=== PATIENT | male | born 1985 | race Caucasian/White ===

== ENCOUNTER 2020-06-10 14:57 | Emergency (ER) | payer MEDICAID, OTHER ==
[~2020-06-10] VITALS: Ht 177.8 cm; Wt 60.3 kg
--- NOTE | 2020-06-10 15:06 | NUR ---
PT BIBRA FROM HOME C/O FACIAL PAIN AND DIFFICULTY SWALLOWING X TODAY. PT HAS HX OF MS AND TRIGEMINAL NEURALGA. 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 FACIAL PAIN 12/12. AWAITING MD RIVERA.
--- NOTE | 2020-06-10 15:30 | NUR ---
DR ESQUIVEL AT BEDSIDE FOR EVAL.
--- NOTE | 2020-06-10 15:51 | NUR ---
Patient does not wish to proceed with medical care recommended by Dr. Craft. Patient given information related to possible complications, up to and including , which could occur as a result of leaving the hospital at this time. Patient verbalizes understanding of risks involved due to leaving against medical advice. Patient has signed AMA form.
[2020-06-10 15:53] VITALS: BP 134/87
== END 2020-06-10 15:53 | disposition left against medical advice (07) ==
LOC: ER 15:16
DX: M54.5 Low back pain (principal); G89.29 Other chronic pain; R10.31 Right lower quadrant pain; G35 Multiple sclerosis; Z88.8 Allergy status to other drugs, medicaments and biological substances

== ENCOUNTER 2024-07-23 06:32 | Emergency (ER) | payer MEDICAID ==
[~2024-07-23] VITALS: Ht 172.7 cm; Wt 81.6 kg
[~2024-07-23 06:32] MED LIST: ALPR2TAB7 PO; BACL20TA PO; CELE-85 PO; CHOL100043 PO; DICY10CA37 PO; GEMTESA PO; HYDR-500 PO; MAGN500C16 PO; OCRE300V IV; ONDA4TAB11 SL; PREG150C93 PO; PROM118S5 PO; TIZA-180 PO; VILA10TA PO; ZONI100C31 PO; ZONI50CA15 PO
[2024-07-23 06:34] VITALS: TEMP 98.3
[2024-07-23] MEDS ORDERED: LIDOCAINE 5% (PATCH) 1 EA PATCH TP ONE (07:05)
[2024-07-23] MEDS ORDERED: KETOROLAC TROMETHAMINE 15 MG/ML VIAL ONE (07:06)
[2024-07-23] MEDS: LIDOCAINE 5% (PATCH) 1 EA PATCH TP STA (07:08)
[2024-07-23] MEDS: KETOROLAC TROMETHAMINE 15 MG/ML VIAL IV ONE (07:10)
[2024-07-23] MEDS ORDERED: LIDO30AD10 TP (07:39)
[2024-07-23] MEDS ORDERED: diphenhydrAMINE HCL 50 MG/ML VIAL ONE (08:26)
[2024-07-23] MEDS ORDERED: Magnesium 1GM/D5W 100ML PREMIX 100 ML IV ONE (08:26)
[2024-07-23] MEDS ORDERED: METOCLOPRAMIDE HCL 10 MG/2 ML VIAL ONE (08:26)
[2024-07-23] MEDS ORDERED: HYDROMORPHONE 1 MG/1 ML DISP.SYRIN ONE (08:28)
[2024-07-23] MEDS: HYDROMORPHONE 1 MG/1 ML DISP.SYRIN IV ONE (08:31)
[2024-07-23] MEDS: Magnesium 1 GM/2 ML VIAL IV ONE (08:35)
[2024-07-23] MEDS: diphenhydrAMINE HCL 50 MG/ML VIAL IV ONE (09:40)
[2024-07-23] MEDS: METOCLOPRAMIDE HCL 10 MG/2 ML VIAL IV ONE (09:53)
[2024-07-23 10:21] VITALS: BP 118/84; O2SAT 99
== END 2024-07-23 10:22 | disposition home or self-care (01) ==
LOC: ER 06:34
DX: S46.911A Strain of unspecified muscle, fascia and tendon at shoulder and upper arm level, right arm, initial encounter (principal); G43.909 Migraine, unspecified, not intractable, without status migrainosus; G89.29 Other chronic pain; Z79.899 Other long term (current) drug therapy; W01.0XXA Fall on same level from slipping, tripping and stumbling without subsequent striking against object, initial encounter; Y93.89 Activity, other specified; Y92.89 Other specified places as the place of occurrence of the external cause; Y99.8 Other external cause status
CPT/HCPCS: 99284; 96365; 96375; 73030; J1885; J1200; J2765; J7030; A4223; J3475; J1171

== ENCOUNTER 2024-10-07 17:22 | Emergency (ER) | payer MEDICAID ==
[~2024-10-07] VITALS: Ht 177.8 cm; Wt 81.6 kg
[~2024-10-07 17:22] MED LIST changes: +LIDO30AD10 TP
[2024-10-07 17:51] VITALS: BP 131/75; TEMP 98.8; O2SAT 95
== END 2024-10-07 19:31 | disposition left against medical advice (07) ==
LOC: ER 17:29
DX: R51.9 Headache, unspecified (principal); Z53.21 Procedure and treatment not carried out due to patient leaving prior to being seen by health care provider